=== PATIENT | male | born 1945 | race Caucasian/White ===

== ENCOUNTER 2017-07-06 10:36 | Outpatient (CLI) | payer MEDICARE ==
--- NOTE | 2017-07-06 13:45 | CT ---
NONCONTRAST LOW DOSE CT SCAN THORAX: Date: 07-06-17 History: COPD. History of smoking for 51 years. Lung cancer screening. Comparison: None available. FINDINGS: There are several pleural based pulmonary nodules seen in the left lower lobe with two of the nodular densities seen along the major fissure, the largest measuring approximately 8 mm. Pleural based pulm onary nodule at the lateral aspect left lower lobe measures 6 mm. A slightly irregular 8 mm pulmonary nodule is seen in the left upper lobe. There is an approximately 6 mm nodular density also seen in t he left upper lobe, better visualized on coronal images (image 80, series 601). No discrete pulmonary nodule is seen on the right. There are mild emphysematous changes, predominately within the upper lobes. There are linear densitie s seen at each lung base, greater on the right, predominately pleural based which are probably relate d to areas of mild scarring. Vascular structures and mediastinum are not well evaluated without IV contrast. However, no enlarged lymph nodes are seen by CT size criteria. Vascular calcifications are seen in the coronary arteries as well as involving the thoracic aorta. Degenerative changes seen in the spine. No lytic or sclerotic osseous lesions are appreciated. IMPRESSION: 1. Lung rads category 3 - probably benign findings. There are scattered pulmonary nodules within the left lung, the majority of which are pleural based. A follow up low dose CT scan thorax in 6 months i s recommended. 2. Category S, vascular calcifications in the thoracic aorta and coronary arteries. 3. Category S, COPD and mild chronic lung changes. POS: [facility]
== END 2017-07-06 10:37 | disposition home or self-care (01) ==
LOC: CT 10:36
PROVIDERS: ATTEND Internal Medicine Pulmonary Disease
DX: Z87.891 Personal history of nicotine dependence (principal); J44.9 Chronic obstructive pulmonary disease, unspecified; R91.8 Other nonspecific abnormal finding of lung field; I25.10 Atherosclerotic heart disease of native coronary artery without angina pectoris; I70.0 Atherosclerosis of aorta
CPT/HCPCS: G0297

== ENCOUNTER 2018-05-08 16:02 | Outpatient (CLI) | payer MEDICARE ==
--- NOTE | 2018-05-08 18:37 | CT ---
CT CHEST NONCONTRAST 05/08/18 HISTORY: Lung nodules. Followup. COMPARISON: 07/06/17. FINDINGS: Lungs remain hyperinflated with scattered areas of scarring. Subpleural nodules near the left pleural fissure, measuring up to 0.8 cm greatest diameter, are stable. Small nodule within the left upper lo be and the tiny nodule at the left posterolateral subpleural level are also stable. No new masses, no pleural fluid or pneumothorax. Lack of IV contrast limits evaluation of the soft tissues. There is calcification in t he arterial st ructures. Scattered nonenlarged lymph nodes throughout mediastinum are unchanged. Fusiform dilatation of the lower abdominal aorta on the inferior most image measures up to 5.1 cm. IMPRESSION: Stable CT appearance of the subcentimeter left lung nodules. COPD. Atherosclerosis. Fusiform aneurysm of the abdominal aorta is partially visualized. Please consider de dicated CT abdomen/pelvis for better characterization. POS: [facility]
== END 2018-05-08 16:03 | disposition home or self-care (01) ==
LOC: SCSCT 16:02
PROVIDERS: ATTEND Internal Medicine Pulmonary Disease
DX: R91.8 Other nonspecific abnormal finding of lung field (principal); I71.4 Abdominal aortic aneurysm, without rupture; I70.90 Unspecified atherosclerosis
CPT/HCPCS: 71250